=== PATIENT | male | born 1980 | race Caucasian/White ===

== ENCOUNTER 2025-02-12 15:09 | Emergency (ER) | payer BC ==
[2025-02-12] MEDS: Erythromycin Base 0.5% Ophth Oint 3.5 GM Tube EYELF ONE (15:45)
[2025-02-12] MEDS: Fluorescein 1 MG Ophth Strip EYELF ONE (15:45)
[2025-02-12] MEDS: Tetracaine HCl/PF 0.5% 4 ML Bottle EYELF ONE (15:46)
== END 2025-02-12 15:38 | disposition home or self-care (01) ==
LOC: VM.ED 15:09
DX: S05.02XA Injury of conjunctiva and corneal abrasion without foreign body, left eye, initial encounter (principal); F17.210 Nicotine dependence, cigarettes, uncomplicated; W25.XXXA Contact with sharp glass, initial encounter; Y93.89 Activity, other specified
CPT/HCPCS: 99283; A9270; J3490